=== PATIENT | male | born 1970 | race Caucasian/White ===

== ENCOUNTER 2024-03-07 15:58 | Outpatient (CLI) | payer OTHER ==
--- NOTE | 2024-03-08 23:26 | XRAY Report ---
PROCEDURE: Lumbar Spine 4V INDICATIONS: FRACTURE OF THORACIC VERTEBRA TECHNIQUE: 3 view(s) of the lumbar spine were acquired. COMPARISON: None. FINDINGS: Bones: Vertebral body height and alignment is maintained in the lumbar spine. No suspicious bony les ions. Generalized decreased osseous mineralization present. Soft tissues: Overlying bowel gas pattern is normal. No suspicious soft tissue calcifications. IMPRESSION: Mild lower lumbar spine degenerative disc disease and arthropathy without instability Osteopenic T12 compression fracture with 60% anterior height loss Reviewed by: Gilberto Cassidy MD on 03/08/2024 10:24 PM [email or web address] Approved by: Gilberto Cassidy MD on 03/08/2024 10:24 PM AKDT Station ID: [id number]
== END 2024-03-07 15:59 | disposition home or self-care (01) ==
LOC: DI.S 15:58
PROVIDERS: ATTEND Physician Assistant
DX: S22.081A Stable burst fracture of T11-T12 vertebra, initial encounter for closed fracture (principal); S32.010A Wedge compression fracture of first lumbar vertebra, initial encounter for closed fracture; M51.36 Other intervertebral disc degeneration, lumbar region; M47.816 Spondylosis without myelopathy or radiculopathy, lumbar region